=== PATIENT | female | born 1960 | race Caucasian/White ===

== ENCOUNTER 2022-11-08 06:07 | Emergency (ER) | payer OTHER, SELFPAY ==
[2022-11-08] MEDS ORDERED: Ipratropium/Albuterol 3 ML NEB ONE (07:43)
[2022-11-08 08:19] LABS: Pregnancy Test - Urine (BHCG) Negative (Negative); Specific Gravity 1.007 (1.002-1.036)
[2022-11-08 08:20] LABS: Pregu Control Background? CLEAR/WHITE (CLR/WHITE); Pregu Control Bar Appear? YES (CONTROL BAR)
== END 2022-11-08 08:40 | disposition home or self-care (01) ==
LOC: ERS 06:07
DX: J30.9 Allergic rhinitis, unspecified (principal); J01.90 Acute sinusitis, unspecified; B96.89 Other specified bacterial agents as the cause of diseases classified elsewhere; E78.5 Hyperlipidemia, unspecified; I10 Essential (primary) hypertension; Z79.899 Other long term (current) drug therapy
CPT/HCPCS: 71045; 81025; 94640; J7620